=== PATIENT | female | born 1960 | race Hispanic/Latino ===

== ENCOUNTER 2024-08-24 10:45 | Emergency (ER) | payer OTHER, MEDICARE ==
[~2024-08-24] VITALS: Ht 172.7 cm; Wt 95.3 kg
--- NOTE | 2024-08-24 10:58 | ERN ---
ED Note History of Present Illness Stated Complaint: LT WRIST INJURY Chief Complaint: Wrist Pain/Injury Time Seen by MD: 10:54 Time Seen by Midlevel: 11:00 Dictation: Ms Villatoro is a 64 year old female with history of hypertension, hyperlipidemia, and bipolar depression who presented to the emergency department this morning for evaluation after sustaining a fall. She states she she slipped and fell this morning and broke her fall with her outstretched hands. She reports pain and deformity of the left wrist. Of note, patient is left-hand dominant. There is obvious deformity and swelling. She denies additional injuries, loss of consciousness, chest pain, palpitations, shortness of breath, focal weakness/paresthesia, or dizziness. There is good color, warmth, movement, and sensation to the left fingers. Capillary refills less than 3 seconds. Radial and ulnar pulses are palpable. Ice pack has been applied, Allergies: Coded Allergies: No Known Allergies (Unverified Allergy, Unknown, 08/24/24) Past Medical History Past Medical History: Bipolar, High Cholesterol, Hypertension Surgical History: Hysterectomy, Tonsillectomy PSYCH History: bipolar Social History: Negative History: Not Applicable RN Note Reviewed/Agreed w/PFSH: Yes Review of System Dictation REVIEW OF SYSTEMS: CONSTITUTIONAL: Patient denies fevers, chills, sweats and weight changes. EYES: Patient denies any visual symptoms. EARS, NOSE, AND THROAT: No difficulties with hearing. No symptoms of rhinitis or sore throat. CARDIOVASCULAR: Patient denies chest pains, palpitations, orthopnea and paroxysmal nocturnal dyspnea. RESPIRATORY: No dyspnea on exertion, no wheezing or cough. GI: No nausea, vomiting, diarrhea, constipation, abdominal pain, hematochezia or melena. : No urinary hesitancy or dribbling. No nocturia or urinary frequency. No abnormal urethral discharge. MUSCULOSKELETAL: Reports pain and swelling of left wrist and hand NEUROLOGIC: No chronic headaches, no seizures. Patient denies numbness, tingling or weakness. PSYCHIATRIC: Patient denies problems with mood disturbance. No problems with anxiety. ENDOCRINE: No excessive urination or excessive thirst. DERMATOLOGIC: Patient denies any rashes or skin changes. Initial Vital Sign VS Vital Signs Date Time Temp Pulse Resp B/P (MAP) Pulse Ox O2 Delivery O2 Flow Rate FiO2 08/24/24 10:50 98.4 59 20 145/80 98 0 08/24/24 11:00 Room Air* 21 Physical Exam Dictation Vital signs: Reviewed. Afebrile Constitutional: No acute distress. Non-toxic appearing. Head/Face: Normocephalic, atraumatic. Eyes: Periorbital areas with no swelling, redness, or edema. Lids and lashes are normal. Conjunctival injection is absent. Sclera anicteric. Pupils equal, round, reactive to light. ENT: Pinnas intact and no signs of trauma or erythema. Ear canals clear and no discharge. TMs no erythema. No nasal discharge or bleeding noted. Oropharynx with no exudate, redness, swelling, masses, exudates, or evidence of obstruction. Uvula midline. Mucous membranes moist. Neck: Trachea midline, no masses palpated, and no cervical lymphadenopathy. No swelling. Supple, full range of motion. Chest/Axilla: No tenderness, no crepitus, no paradoxical movement, no retractions. Cardiovascular: Regular rate, regular rhythm, no murmur, no gallops. Symmetric pulses. No peripheral edema. Normotensive Respiratory: Respirations even and unlabored. Lung sounds clear; no wheezes, rales or rhonchi. Room air SpO2 98% Gastrointestinal: Inspection is normal. No distention is appreciated. Bowel sounds are normal. No mass or organomegaly . There is no tenderness. No rebound. No rigidity. No voluntary or involuntary guarding. No Ahmadi's sign. Neurological: Normal speech, gross motor function intact, gross sensory function intact. No focal weakness/Paresthesia. Musculoskeletal/Extremities: Symmetric pulses. There is deformity/swelling of the left wrist. Radial and ulnar pulses are palpable/strong. She has good color, warmth, movement, and sensation to fingers. Capillary refill is brisk Integumentary: Intact. Skin is normal color, warm and dry. Cap refill less than 3 seconds. Results (Laboratory/Radiology) X-RAY Comment: PATIENT: SYLVIA RAYA MR#: [id number] : 1960 SEX: F AGE: 64 LOCATION: [facility] ORDER 1050 STATUS: REG REPORT#: [id number] SERVICE 1049 REASON: INJURY AND PAIN ORDERING PHYSICIAN: BETTYE BOWMAN MD PROCEDURE: WRST 2V LT - WRIST 2VWS LT LEFT WRIST RADIOGRAPHS - 2 VIEWS INDICATION: Pain COMPARISON: None FINDINGS AP and lateral views only. Nondisplaced comminuted articular impaction fracture deformity through the distal left radial metaphysis and displaced ulnar styloid process tip cortical fracture. Scaphoid bone is intact. Ulnar variance is within normal limits. Carpal alignment is well maintained. No radiopaque foreign body noted. IMPRESSION: Nondisplaced comminuted articular impaction fracture deformity through the distal left radial metaphysis and displaced ulnar styloid process tip cortical fracture. DICTATED BY: EBONI MACKENZIE MD DATE: 08/24/24 1139 ELECTRONICALLY SIGNED BY: EBONI MACKENZIE MD DATE: 08/24/24 1142 ED Course ED Course Orders Procedure Category Date Status Time Wrist 2vws Lt RAD 08/24/24 Resulted 10:49 Hydrocodone/Apap PHA 08/24/24 Complete 5/325 (Ackerly 5/325mg) 11:00 Current Medications Medications (Trade) Dose Ordered Sig/Jose Route PRN Reason Start Time Stop Time Status Last Admin Dose Admin Acetaminophen/ Hydrocodone Bitart (NORco 5/325MG) 1 tab ONCE ONCE PO 08/24/24 11:00 08/24/24 11:01 DC 08/24/24 11:07 Vital Signs Date Time Temp Pulse Resp B/P (MAP) Pulse Ox O2 Delivery O2 Flow Rate FiO2 08/24/24 11:00 98.4 60 16 140/80 98 Room Air* 0 21 08/24/24 10:50 98.4 59 20 145/80 98 0 Uneventful ED course. Vital signs remained stable; afebrile and normotensive. X-ray of the left wrist revealed nondisplaced comminuted articular impaction fracture deformity through the distal left radial metaphysis and displaced ulnar styloid process tip cortical fracture. Ice pack was applied and she received dose Ackerly x1. I have spoken with Dr. Ashwin Fernandez, orthopedic surgeon, recommended sugar-tong splint/sling. She will call his office after 830 tomorrow morning for an appointment. Splint was applied. Neurovascular checks per baseline. Findings were discussed with patient. Medical Decision Making MDM MDM: Differential diagnosis: Wrist fracture, radial fracture, ulnar fracture, sprain Rationale: Tests considered and ordered secondary to shared decision making include: Previous outside records reviewed: Old ER visits. Risk of complication and/or morbidity or mortality of patient management: None Medications-Per medication reconciliation Need for hospitalization: Patient does not meet criteria for hospitalization. Need for emergency major/minor surgery: No There are no social concerns with this patient. Prescription drug management examination, x-ray: Ibuprofen, Tylenol No. 3 Prescriptions will include symptomatic care Patient's prior external medical records from other ER visits were reviewed by me as indicated. Prior testing and results from previous visits were reviewed. Prior tests were taken into account with medical decision making and resource utilization, independent historian/historians were used to obtain complete medical history. I independently interpreted the test that were performed, results were reviewed by me and considered findings on radiology if ordered. Medical management and examination interpretation discussions were had by me with other qualified healthcare professionals as indicated for the patient's care. DX & DISP Disposition: Discharge Departure Impression: Primary Impression: Fracture of left wrist Condition: Stable Scripts Ibuprofen (Ibuprofen) 600 Mg Tablet 1 TAB PO q8 hours PRN for pain, #20 TAB 0 Refills with food Prov: CHIOMA FUNES NP 08/24/24 Acetaminophen with Codeine (Acetaminophen-Cod #3 Tablet) 300 Mg-30 Mg Tablet 1 TAB PO q8 hours PRN PRN for pain, #9 TAB 0 Refills Prov: CHIOMA FUNES SPEECH CORRECTION ASSISTANT 08/24/24 Additional Instructions: Keep left wrist in splint with sling. Keep elevated. May apply ice packs. Monitor circulation (color, warmth, movement, and sensation of your left fingers). May take ibuprofen every 8 hours as needed for [id number]-kr-[id number] pain. May take Tylenol No. 3 one tablet every 8 hours as needed for severe pain. You will call Dr. Fernandez's office tomorrow after 830 for appointment. I have discu ssed case with him. Return to the emergency department for any worsening of symptoms or concerns Referrals: SRI DICKINSON MD (PCP) ASHWIN FERNANDEZ DO Time of Disposition: 12:06 CHIOMA FUNES SPEECH CORRECTION ASSISTANT Aug 24, 2024 10:58
[2024-08-24 11:00] VITALS: BP 140/80; PULSE 60; RESP 16; TEMP 98.4; O2SAT 98
[2024-08-24] MEDS: HYDROcodone/APAP 5/325 1 TAB TABLET PO ONE (11:07)
--- NOTE | 2024-08-24 11:42 | HMCIMG ---
LEFT WRIST RADIOGRAPHS - 2 VIEWS INDICATION: Pain COMPARISON: None FINDINGS AP and lateral views only. Nondisplaced comminuted articular impaction fracture deformity through the distal left radial metaphysis and displaced ulnar styloid process tip cortical fracture. Scaphoid bone is intact. Ulnar variance is within normal limits. Carpal alignment is well maintained. No radiopaque foreign body noted. IMPRESSION: Nondisplaced comminuted articular impaction fracture deformity through the distal left radial metaphysis and displaced ulnar styloid process tip cortical fracture.
[2024-08-24] MEDS ORDERED: IBUP-2070 PO (12:05)
[2024-08-24] MEDS ORDERED: ACET-2079 PO (12:05)
--- NOTE | 2024-08-24 12:19 | NUR ---
splint placed as ordered circulation wnl
== END 2024-08-24 12:24 | disposition home or self-care (01) ==
LOC: EDH 10:45
DX: S52.502A Unspecified fracture of the lower end of left radius, initial encounter for closed fracture (principal); S52.612A Displaced fracture of left ulna styloid process, initial encounter for closed fracture; E78.00 Pure hypercholesterolemia, unspecified; I10 Essential (primary) hypertension; Z90.710 Acquired absence of both cervix and uterus; W01.0XXA Fall on same level from slipping, tripping and stumbling without subsequent striking against object, initial encounter; Y93.89 Activity, other specified; Y92.89 Other specified places as the place of occurrence of the external cause; Y99.8 Other external cause status
CPT/HCPCS: 29125; 73100; 99283